=== PATIENT | male | born 1960 | race African-American/Black ===

== ENCOUNTER 2017-09-18 14:15 | Inpatient (IN) | payer OTHER ==
[2017-09-18 14:44] VITALS: BMI 35.3
--- NOTE | 2017-09-18 18:23 | HP ---
Admission [facility] Chief Complaint: Here for rehab. Allergies/Adverse Reactions: Allergies Allergy/AdvReac Type Severity Reaction Status Date / Time Fish Containing Products Allergy Severe Swelling Verified 09/18/17 17:32 History of Present Illness: Discharged from [facility] on 09/14. Has had some sporadic use of heroin, alcohol and cocaine since discharge. Last use was 09/18 @ 2 am. Significantly less than before detox. Denies withdrawal symptoms. MTD and BZO in urine toxicology are from being detoxed. Smokes cigarettes 1/2 PPD. Hx. asthma w/ recent exacerbation. Hx. DM and HTN. Not on a diabetic or low sodium diet. Exam Limitations: No Limitations - Ebola screening Have you traveled outside of the country in the last 21 days: No (N) Have you had contact with anyone from an Ebola affected area: No Have you been sick,other than usual withdrawal symptoms: No Do you have a fever: No - Review of Systems Constitutional: No Symptoms Reported EENT: reports: Blurred Vision (Needs to use glasses.), Other (Chronic bulging eyes. Denies thyroid disorder.) Respiratory: reports: Other (Hx asthma. Last attack years ago. Trggered by cold weather.) Cardiac: reports: Other (Hx. HTN on medication) GI: reports: Other (Umbilical hernia.) : reports: Frequency (Frequency 3 x/hour w/ alot of urine output. No blood, burning or pain w/ urination.) Musculoskeletal: reports: Joint Pain ((R) knee pain. Torn cartiledge. pain is sharp and "7". Pain increases w/ weight bearing. Nothing relieves pain.), Other ((L) knee replacement.) Integumentary: reports: No Symptoms Reported Neuro: reports: Headache (Mild h/a.) Endocrine: reports: Other (Has DM. On metformin. Unknown A1C or Bld glucose.) Hematology: reports: No Symptoms Reported Psychiatric: reports: Orientated x3, Depressed (Unpleased with self. Denies suicide or violent ideation.) Patient History - Patient Medical History Hx Asthma: Yes (No recent exacerbation.) Hx Chronic Obstructive Pulmonary Disease (COPD): No Hx Cancer: No Hx Cardiac Disorders: No Hx Congestive Heart Failure: No Hx Hypertension: Yes (On meds) Hx Hypercholesterolemia: No Hx Pacemaker: No HX Cerebrovascular Accident: No Hx Seizures: No Hx Dementia: No Hx Diabetes: Yes (On metformin) Hx Gastrointestinal Disorders: No Hx Liver Disease: No Hx Genitourinary Disorders: No Hx Sexually Transmitted Disorders: No Hx Renal Disease (ESRD): No Hx Thyroid Disease: No Hx Human Immunodeficiency Virus (HIV): No Hx Hepatitis C: No Hx Depression: Yes (Feels a little down now. ) Hx Suicide Attempt: No Hx Bipolar Disorder: No Hx Schizophrenia: No - Patient Surgical History Past Surgical History: Yes Hx Neurologic Surgery: No Hx Cataract Extraction: No Hx Cardiac Surgery: No Hx Lung Surgery: No Hx Breast Surgery: No Hx Breast Biopsy: No Hx Abdominal Surgery: No Hx Appendectomy: No Hx Cholecystectomy: No Hx Genitourinary Surgery: No Hx Orthopedic Surgery: Yes ((L) TKR June 2014) Anesthesia Reaction: No - PPD History Previous Implant?: Yes (States (+) years ago, but recent was (-)) Implanted On Prior R Admission?: No PPD to be Administered?: Yes - Smoking Cessation Smoking history: Current every day smoker Have you smoked in the past 12 months: Yes Aproximately how many cigarettes per day: 10 Hx Chewing Tobacco Use: No Initiated information on smoking cessation: Yes 'Breaking Loose' booklet given: 09/18/17 - Substance & Tx. History Hx Alcohol Use: Yes Hx Substance Use: Yes Substance Use Type: Cocaine, Heroin Hx Substance Use Treatment: Yes (Detox at [facility]- discharged 09/14/17) - Substances Abused Heroin Route: Sniff Frequency: 3-6 times per week Amount used: 1 bag Age of first use: 19 Date of Last Use: 09/18/17 (2 am. Using les than before detox) Cocaine Route: Sniff and Smoke Frequency: 3-6 times per week Amount used: 2 grms Age of first use: 17 Date of Last Use: 09/18/17 (2 am. (Much less than before detox)) Alcohol Route: Oral Frequency: 3-6 times per week Amount used: 6-12 12 oz beers and pint vodka Age of first use: 13 Date of Last Use: 09/18/17 (2 am. (Much less than before detox)) Family Disease History - Family Disease History Family Disease History: Diabetes: Mother (DM and asthma), Heart Disease: Father (), Mother, Respiratory: Mother, Sister (COPD) Admission Physical Exam S - Vital Signs Vital Signs: Vital Signs - 24 hr 09/18/17 14:39 Temperature 98.1 F Pulse Rate 91 H Respiratory 14 Rate Blood Pressure 150/84 - Physical General Appearance: Yes: No Apparent Distress HEENTM: Yes: EOMI, Hearing grossly Normal, Normal Voice, DUNG (pupils at 3 mm.) , Other (Eyes bulging.) Respiratory: Yes: Chest Non-Tender, Lungs Clear, Normal Breath Sounds Neck: Yes: No masses,lesions,Nodules, Supple Breast: Yes: Breast Exam Deferred Cardiology: Yes: Regular Rhythm, Regular Rate, S1, S2 Abdominal: Yes: Normal Bowel Sounds, Non Tender, Soft, Protuberent, Hernia ( Umbilical hernia. Reducible.) Genitourinary: Yes: Within Normal Limits, Frequency Back: Yes: Normal Inspection Musculoskeletal: Yes: Gait Steady, Joint Stiffness (Decreased ROM (L) knee. (+) crepitus (R) knee.) Extremities: Yes: Normal Capillary Refill, Non-Tender Neurological: Yes: motor checker II-XII NML intact, Fully Oriented, Motor Strength 5/5, Normal Mood/Affect Integumentary: Yes: Within Normal Limits Lymphatic: Yes: Within Normal Limits - Diagnostic (1) Opiate dependence Current Visit: No Status: Chronic Qualifiers: Substance use status: in remission Qualified Code(s): F11.21 - Opioid dependence, in remission (2) Alcohol dependence Current Visit: Yes Status: Acute (3) Cocaine dependence Current Visit: Yes Status: Chronic Qualifiers: Substance use status: in remission Qualified Code(s): F14.21 - Cocaine dependence, in remission (4) Hypertension Current Visit: Yes Status: Chronic Qualifiers: Hypertension type: unspecified Qualified Code(s): I10 - Essential (primary ) hypertension (5) Diabetes mellitus Current Visit: Yes Status: Acute Qualifiers: Diabetes mellitus type: type 2 Diabetes mellitus residential insulin use: without instructor private use Diabetes mellitus complication status: without complication Qualified Code(s): E11.9 - Type 2 diabetes mellitus without complications (6) History of knee replacement procedure of left knee Current Visit: No Status: Chronic (7) Knee pain, right Current Visit: Yes Status: Chronic Qualifiers: Chronicity: chronic Qualified Code(s): M25.561 - Pain in right knee; G89.29 - Other chronic pain (8) Frequency of urination Current Visit: Yes Status: Chronic (9) Nicotine dependence unspecified, with withdrawal Current Visit: Yes Status: Acute Qualifiers: Nicotine product type: cigarettes Qualified Code(s): F17.213 - Nicotine dependence, cigarettes, with withdrawal Cleared for Admission [facility] - Detox or Rehab [facility] Level of Care: Medically Managed Claeared for Rehab Admission: Yes [facility] Breath Alcohol Content Breath Alcohol Content: 0 Urine Drug Screen - Results Drug Screen Negative: No Urine Drug Screen Results: NOREEN-Cocaine, BZO-Benzodiazepines, MTD-Methadone Inpatient Rehab Admission - Initial Determination Are CD services needed?: Yes Free of communicable disease: Yes Not in need of hospitalization: Yes - Rehab Admission Criteria Previous failed treatment: Yes Poor recovery environment: Yes Comorbidities: Yes Lacks judgement: No Patient is meeting Inpatient Rehab admission criteria:: Yes
[2017-09-18] MEDS ORDERED: ACETAMINOPHEN 325 MG TABLET (FP) PO PRN (19:21)
[2017-09-18] MEDS ORDERED: guaiFENesin/D-METHORPHAN HB 10 ML UNIT-DOSE CUPS PO PRN (19:21)
[2017-09-18] MEDS ORDERED: LOPERAMIDE HCL 2 MG CAPSULE PO PRN (19:21)
[2017-09-18] MEDS ORDERED: MAG HYDROX/AL HYDROX/SIMETH 30 ML UNIT-DOSE CUP PO PRN (19:21)
[2017-09-18] MEDS ORDERED: MAGNESIUM CITRATE 300 ML BOTTLE PO PRN (19:21)
[2017-09-18] MEDS ORDERED: MAGNESIUM HYDROX 2400MG/30ML ORAL SUSPENSION 30 ML CUP PO PRN (19:21)
[2017-09-18] MEDS ORDERED: NICOTINE POLACRILEX 2 MG GUM BC PRN (19:21)
[2017-09-18] MEDS ORDERED: hydrOXYzine PAMOATE 50 MG CAPSULE (FP) PO PRN (19:21)
[2017-09-18] MEDS ORDERED: P-EPHED 60MG/TRIPROLIDI 2.5MG TABLET PO PRN (19:21)
[2017-09-18] MEDS ORDERED: TUBERCULIN PPD 5 TU/0.1ML VIAL ID ONE (20:09)
[2017-09-18] MEDS: metFORMIN HCL 500 MG TABLET (FP) PO SCH (21:50)
[2017-09-18] MEDS: THIAMINE HCL 100 MG TABLET (FP) PO SCH (21:51)
[2017-09-18] MEDS: IBUPROFEN 600 MG TABLET (FP) PO SCH (21:51)
[2017-09-18] MEDS ORDERED: MELATONIN 5 MG TABLETS PO PRN (22:00)
[2017-09-19] MEDS: IBUPROFEN 600 MG TABLET (FP) PO SCH ×3 (06:45→21:23)
[2017-09-19] MEDS: amLODIPine BESYLATE 10 MG TABLET (FP) PO SCH (10:15)
[2017-09-19] MEDS: metFORMIN HCL 500 MG TABLET (FP) PO SCH ×2 (10:15→16:53)
[2017-09-19] MEDS: PRENATAL VITAMINS W/ FOLIC ACID TABLET (FP) PO SCH (10:15)
[2017-09-19] MEDS: LISINOPRIL 10 MG TABLET (FP) PO SCH (10:15)
[2017-09-19] MEDS: NICOTINE 21 MG/24 HOURS TOPICAL PATCH TD SCH (10:16)
[2017-09-19 10:45] LABS: HEMATOCRIT 42.3 % (35.4-49); HEMOGLOBIN 13.9 GM/dL (11.7-16.9); MCH 27.7 pg (25.7-33.7); MCHC 32.7 g/dl (32.0-35.9); MEAN CELL VOLUME 84.5 fl (80-96); MEAN PLT VOLUME 9.2 fl (7.5-11.1); PLATELET COUNT 149 K/MM3 (134-434); RBC 5.01 M/mm3 (4.00-5.60); RDW 14.8 % (11.9-15.9); WHITE BLOOD COUNT 5.1 K/mm3 (4.0-10.0)
[2017-09-19 11:00] LABS: ALBUMIN 3.2 g/dl (3.4-5.0); ANION GAP 6 (8-16); BLOOD UREA NITROGEN 15 mg/dL (7-18); CALCIUM 8.6 mg/dL (8.5-10.1); CHLORIDE 109 mmol/L (98-107); CO2 27 mmol/L (21-32); CREATININE 0.9 mg/dL (0.7-1.3); GLUCOSE,RANDOM 124 mg/dL (74-106); POTASSIUM 4.1 mmol/L (3.5-5.1); SGOT/AST 12 U/L (15-37); SGPT/ALT 25 U/L (12-78); SODIUM 142 mmol/L (136-145)
[2017-09-19 11:02] LABS: ALK PHOS 85 U/L (45-117); BILIRUBIN,TOTAL 0.2 mg/dL (0.2-1.0); TOT PROT 6.3 g/dl (6.4-8.2)
--- NOTE | 2017-09-19 14:49 | EKG ---
Test Reason : Blood Pressure : / mmHG Vent. Rate : 076 BPM Atrial Rate : 076 BPM P-R Int : 144 ms QRS Dur : 104 ms QT Int : 378 ms P-R-T Axes : 046 017 016 degrees QTc Int : 425 ms NORMAL SINUS RHYTHM NORMAL ECG NO PREVIOUS ECGS AVAILABLE Confirmed by MD Moscoso Daniel ([id number]) on 09/19/2017 2:49:12 PM Referred By: Confirmed By:Oliverio Moscoso MD
[2017-09-19 16:02] LABS: URINE APPEARANCE CLEAR; URINE BILIRUBIN NEGATIVE (<2.0 mg/dL); URINE COLOR LTYELLOW; URINE GLUCOSE (UA) NEGATIVE (NEGATIVE); URINE KETONE NEGATIVE (NEGATIVE); URINE LEUK ESTERASE NEGATIVE (NEGATIVE); URINE NITRITE NEGATIVE (NEGATIVE); URINE PROTEIN NEGATIVE (NEGATIVE); URINE UROBILINOGEN NEGATIVE mg/dL (0.2-1.0)
[2017-09-19] MEDS: THIAMINE HCL 100 MG TABLET (FP) PO SCH (21:23)
[2017-09-20] MEDS: metFORMIN HCL 500 MG TABLET (FP) PO SCH ×2 (06:45→16:44)
[2017-09-20] MEDS: IBUPROFEN 600 MG TABLET (FP) PO SCH ×3 (06:45→21:20)
[2017-09-20] MEDS: PRENATAL VITAMINS W/ FOLIC ACID TABLET (FP) PO SCH (10:08)
[2017-09-20] MEDS: NICOTINE 21 MG/24 HOURS TOPICAL PATCH TD SCH (10:08)
[2017-09-20] MEDS: LISINOPRIL 10 MG TABLET (FP) PO SCH (10:08)
[2017-09-20] MEDS: amLODIPine BESYLATE 10 MG TABLET (FP) PO SCH (10:08)
--- NOTE | 2017-09-20 18:09 | PN ---
[facility] Progress Note Note: positive ppd 20 mm ,will get chest ray in am
[2017-09-20] MEDS: THIAMINE HCL 100 MG TABLET (FP) PO SCH (21:20)
[2017-09-21] MEDS: metFORMIN HCL 500 MG TABLET (FP) PO SCH ×2 (06:12→16:51)
[2017-09-21] MEDS ORDERED: cloNIDine HCL 0.1 MG TABLET PO ONE (07:15)
[2017-09-21] MEDS: IBUPROFEN 600 MG TABLET (FP) PO SCH ×3 (07:52→21:32)
--- NOTE | 2017-09-21 09:23 | HP ---
Psychiatrist Admission - Data Date of interview: 09/21/17 Admission source: [facility] Identifying data: Patient is a 57 year old single male, father of one, unemployed, homeless, and supported by public assistance. This is patient's first admission to rehab at [place]. Pt. admitted for alcohol, cocaine, and heroin dependence. Medical History: h/o asthma, left knee replacement Psychiatric History: Patient denies h/o psychiatric hospitalization, outpatient treatment, and suicide attempt. Physical/Sexual Abuse/Trauma History: Denies. Additional Comment: Urine Drug Screen Results: NOREEN-Cocaine, BZO-Benzodiazepines , MTD-Methadone Vital Signs: Vital Signs - 24 hr 09/21/17 09/21/17 09/21/17 00:30 03:30 07:14 Temperature 97.9 F Pulse Rate 80 Respiratory 18 18 18 Rate Blood Pressure 152/112 09/21/17 07:32 Temperature Pulse Rate 83 Respiratory Rate Blood Pressure 128/91 Allergies/Adverse Reactions: Allergies Allergy/AdvReac Type Severity Reaction Status Date / Time Fish Containing Products Allergy Severe Swelling Verified 09/18/17 17:32 Date of last physical exam: 09/18/17 Concur with the findings of this exam: Yes - Substance Abuse/Tx History Hx Alcohol Use: Yes (2 pints daily) Hx Substance Use: Yes (Cocaine- "varies" Heroin- 5 bags daily) Substance Use Type: Cocaine, Heroin Hx Substance Use Treatment: Yes ([facility] from 2013- 2015) Mental Status Exam - Mental Status Exam Alert and Oriented to: Time, Place, Person Cognitive Function: Good Patient Appearance: Well Groomed Mood: Euthymic Affect: Mood Congruent Patient Behavior: Fatigued, Appropriate Speech Pattern: Appropriate Voice Loudness: Mildly Soft/Quiet Thought Process: Goal Oriented Thought Disorder: Not Present Hallucinations: Denies Suicidal Ideation: Denies Homicidal Ideation: Denies Insight/Judgement: Poor Sleep: Fair Appetite: Good Muscle strength/Tone: Normal Gait/Station: Normal Psychiatric Findings - Problem List ([place] 1, 2,3) (1) Alcohol dependence Current Visit: Yes Status: Acute (2) Cocaine dependence Current Visit: Yes Status: Chronic Qualifiers: Substance use status: in remission Qualified Code(s): F14.21 - Cocaine dependence, in remission (3) Opiate dependence Current Visit: Yes Status: Chronic Qualifiers: Substance use status: in remission Qualified Code(s): F11.21 - Opioid dependence, in remission - Initial Treatment Plan Initial Treatment Plan: Psychoeducation provided. Rehabilition in progress. [facility].
[2017-09-21] MEDS: PRENATAL VITAMINS W/ FOLIC ACID TABLET (FP) PO SCH (10:11)
[2017-09-21] MEDS: NICOTINE 21 MG/24 HOURS TOPICAL PATCH TD SCH (10:11)
[2017-09-21] MEDS: amLODIPine BESYLATE 10 MG TABLET (FP) PO SCH (10:11)
[2017-09-21] MEDS: LISINOPRIL 10 MG TABLET (FP) PO SCH (10:11)
[2017-09-21] MEDS: MENTHOL/PHENOL 1 EACH UD MM PRN (21:33)
[2017-09-21] MEDS: THIAMINE HCL 100 MG TABLET (FP) PO SCH (21:33)
[2017-09-22] MEDS: IBUPROFEN 600 MG TABLET (FP) PO SCH ×3 (06:20→21:17)
[2017-09-22] MEDS: metFORMIN HCL 500 MG TABLET (FP) PO SCH ×2 (06:20→16:50)
[2017-09-22] MEDS: LISINOPRIL 10 MG TABLET (FP) PO SCH (10:16)
[2017-09-22] MEDS: PRENATAL VITAMINS W/ FOLIC ACID TABLET (FP) PO SCH (10:16)
[2017-09-22] MEDS: amLODIPine BESYLATE 10 MG TABLET (FP) PO SCH (10:16)
[2017-09-22] MEDS: NICOTINE 21 MG/24 HOURS TOPICAL PATCH TD SCH (10:16)
[2017-09-22] MEDS: THIAMINE HCL 100 MG TABLET (FP) PO SCH (21:17)
[2017-09-23] MEDS: IBUPROFEN 600 MG TABLET (FP) PO SCH ×3 (06:01→21:09)
[2017-09-23] MEDS: metFORMIN HCL 500 MG TABLET (FP) PO SCH ×2 (06:01→16:41)
[2017-09-23] MEDS: LISINOPRIL 10 MG TABLET (FP) PO SCH (10:08)
[2017-09-23] MEDS: amLODIPine BESYLATE 10 MG TABLET (FP) PO SCH (10:08)
[2017-09-23] MEDS: PRENATAL VITAMINS W/ FOLIC ACID TABLET (FP) PO SCH (10:08)
[2017-09-23] MEDS: NICOTINE 21 MG/24 HOURS TOPICAL PATCH TD SCH (10:09)
[2017-09-23] MEDS: THIAMINE HCL 100 MG TABLET (FP) PO SCH (21:09)
[2017-09-24] MEDS: metFORMIN HCL 500 MG TABLET (FP) PO SCH ×2 (09:36→17:05)
[2017-09-24] MEDS: IBUPROFEN 600 MG TABLET (FP) PO SCH ×3 (09:36→21:13)
[2017-09-24] MEDS: amLODIPine BESYLATE 10 MG TABLET (FP) PO SCH (09:50)
[2017-09-24] MEDS: PRENATAL VITAMINS W/ FOLIC ACID TABLET (FP) PO SCH (09:51)
[2017-09-24] MEDS: LISINOPRIL 10 MG TABLET (FP) PO SCH (09:51)
[2017-09-24] MEDS: NICOTINE 21 MG/24 HOURS TOPICAL PATCH TD SCH (09:51)
[2017-09-24] MEDS: THIAMINE HCL 100 MG TABLET (FP) PO SCH (21:13)
[2017-09-25] MEDS: IBUPROFEN 600 MG TABLET (FP) PO SCH ×3 (07:11→21:13)
[2017-09-25] MEDS: metFORMIN HCL 500 MG TABLET (FP) PO SCH ×2 (07:12→17:19)
[2017-09-25] MEDS: amLODIPine BESYLATE 10 MG TABLET (FP) PO SCH (10:02)
[2017-09-25] MEDS: LISINOPRIL 10 MG TABLET (FP) PO SCH (10:02)
[2017-09-25] MEDS: PRENATAL VITAMINS W/ FOLIC ACID TABLET (FP) PO SCH (10:02)
[2017-09-25] MEDS: NICOTINE 21 MG/24 HOURS TOPICAL PATCH TD SCH (10:02)
[2017-09-25] MEDS: THIAMINE HCL 100 MG TABLET (FP) PO SCH (21:13)
[2017-09-26] MEDS: metFORMIN HCL 500 MG TABLET (FP) PO SCH ×2 (06:43→17:00)
[2017-09-26] MEDS: IBUPROFEN 600 MG TABLET (FP) PO SCH ×3 (06:43→21:25)
[2017-09-26] MEDS: amLODIPine BESYLATE 10 MG TABLET (FP) PO SCH (09:55)
[2017-09-26] MEDS: PRENATAL VITAMINS W/ FOLIC ACID TABLET (FP) PO SCH (09:55)
[2017-09-26] MEDS: NICOTINE 21 MG/24 HOURS TOPICAL PATCH TD SCH (09:55)
[2017-09-26] MEDS: LISINOPRIL 10 MG TABLET (FP) PO SCH (09:55)
[2017-09-26] MEDS: THIAMINE HCL 100 MG TABLET (FP) PO SCH (21:26)
[2017-09-27] MEDS: metFORMIN HCL 500 MG TABLET (FP) PO SCH ×2 (07:23→16:41)
[2017-09-27] MEDS: IBUPROFEN 600 MG TABLET (FP) PO SCH ×3 (07:24→21:17)
[2017-09-27] MEDS: LISINOPRIL 10 MG TABLET (FP) PO SCH (10:04)
[2017-09-27] MEDS: PRENATAL VITAMINS W/ FOLIC ACID TABLET (FP) PO SCH (10:04)
[2017-09-27] MEDS: NICOTINE 21 MG/24 HOURS TOPICAL PATCH TD SCH (10:04)
[2017-09-27] MEDS: amLODIPine BESYLATE 10 MG TABLET (FP) PO SCH (10:04)
[2017-09-27] MEDS: THIAMINE HCL 100 MG TABLET (FP) PO SCH (21:17)
[2017-09-28] MEDS: metFORMIN HCL 500 MG TABLET (FP) PO SCH ×2 (06:49→16:45)
[2017-09-28] MEDS: IBUPROFEN 600 MG TABLET (FP) PO SCH ×3 (06:50→21:17)
[2017-09-28] MEDS: amLODIPine BESYLATE 10 MG TABLET (FP) PO SCH (10:14)
[2017-09-28] MEDS: NICOTINE 21 MG/24 HOURS TOPICAL PATCH TD SCH (10:14)
[2017-09-28] MEDS: PRENATAL VITAMINS W/ FOLIC ACID TABLET (FP) PO SCH (10:14)
[2017-09-28] MEDS: LISINOPRIL 10 MG TABLET (FP) PO SCH (10:14)
[2017-09-28] MEDS: THIAMINE HCL 100 MG TABLET (FP) PO SCH (21:17)
[2017-09-29] MEDS: IBUPROFEN 600 MG TABLET (FP) PO SCH ×3 (06:11→21:18)
[2017-09-29] MEDS: metFORMIN HCL 500 MG TABLET (FP) PO SCH ×2 (06:12→17:02)
[2017-09-29] MEDS: LISINOPRIL 10 MG TABLET (FP) PO SCH (10:29)
[2017-09-29] MEDS: PRENATAL VITAMINS W/ FOLIC ACID TABLET (FP) PO SCH (10:29)
[2017-09-29] MEDS: NICOTINE 21 MG/24 HOURS TOPICAL PATCH TD SCH (10:29)
[2017-09-29] MEDS: amLODIPine BESYLATE 10 MG TABLET (FP) PO SCH (10:29)
[2017-09-29] MEDS: THIAMINE HCL 100 MG TABLET (FP) PO SCH (21:18)
[2017-09-29] MEDS: MENTHOL/PHENOL 1 EACH UD MM PRN (21:19)
[2017-09-30] MEDS: IBUPROFEN 600 MG TABLET (FP) PO SCH ×3 (06:15→21:13)
[2017-09-30] MEDS: metFORMIN HCL 500 MG TABLET (FP) PO SCH ×3 (07:34→16:53)
[2017-09-30] MEDS: amLODIPine BESYLATE 10 MG TABLET (FP) PO SCH (10:29)
[2017-09-30] MEDS: NICOTINE 21 MG/24 HOURS TOPICAL PATCH TD SCH (10:29)
[2017-09-30] MEDS: LISINOPRIL 10 MG TABLET (FP) PO SCH (10:29)
[2017-09-30] MEDS: PRENATAL VITAMINS W/ FOLIC ACID TABLET (FP) PO SCH (10:29)
--- NOTE | 2017-09-30 13:27 | PN ---
[facility] Progress Note Note: PATIENT C/O HEADACHE AND MILD DIZZINESS. HAS HX OF HTN AND TREATED WITH LISINOPRIL. DENIES CP AND SOB. Vital Signs Temperature 97.7 F 09/30/17 09:18 Pulse Rate 86 09/30/17 09:18 Respiratory Rate 20 09/30/17 09:18 Blood Pressure 147/103 09/30/17 09:18 O2 Sat by Pulse Oximetry (%) Laboratory Tests 09/18/17 09/19/17 09/19/17 20:53 07:55 07:55 WBC 5.1 RBC 5.01 Hgb 13.9 Hct 42.3 MCV 84.5 MCH 27.7 MCHC 32.7 RDW 14.8 Plt Count 149 MPV 9.2 Sodium 142 Potassium 4.1 Chloride 109 H Carbon Dioxide 27 Anion Gap 6 L BUN 15 Creatinine 0.9 Creat Clearance w eGFR > 60 POC Glucometer 152 Random Glucose 124 H Calcium 8.6 Total Bilirubin 0.2 AST 12 L ALT 25 Alkaline Phosphatase 85 Total Protein 6.3 L Albumin 3.2 L Urine Color Urine Appearance Urine pH Ur Specific [place] Urine Protein Urine Glucose (UA) Urine Ketones Urine Blood Urine Nitrite Urine Bilirubin Urine Urobilinogen Ur Leukocyte Esterase RPR Titer Hep C Ab Diagnostic Liver Fibrosis Interp HIV 1&2 Antibody Screen HIV P24 Antigen 09/19/17 09/19/17 09/19/17 07:55 07:55 07:55 WBC RBC Hgb Hct MCV MCH MCHC RDW Plt Count MPV Sodium Potassium Chloride Carbon Dioxide Anion Gap BUN Creatinine Creat Clearance w eGFR POC Glucometer Random Glucose Calcium Total Bilirubin AST ALT Alkaline Phosphatase Total Protein Albumin Urine Color Urine Appearance Urine pH Ur Specific [place] Urine Protein Urine Glucose (UA) Urine Ketones Urine Blood Urine Nitrite Urine Bilirubin Urine Urobilinogen Ur Leukocyte Esterase RPR Titer Nonreactive Hep C Ab Diagnostic 0.1 Liver Fibrosis Interp HIV 1&2 Antibody Screen Negative HIV P24 Antigen Negative 09/19/17 09/19/17 09/20/17 08:39 16:52 06:44 WBC RBC Hgb Hct MCV MCH MCHC RDW Plt Count MPV Sodium Potassium Chloride Carbon Dioxide Anion Gap BUN Creatinine Creat Clearance w eGFR POC Glucometer 209 132 Random Glucose Calcium Total Bilirubin AST ALT Alkaline Phosphatase Total Protein Albumin Urine Color Ltyellow Urine Appearance Clear Urine pH 6.0 Ur Specific [place] 1.016 Urine Protein Negative Urine Glucose (UA) Negative Urine Ketones Negative Urine Blood Negative Urine Nitrite Negative Urine Bilirubin Negative Urine Urobilinogen Negative Ur Leukocyte Esterase Negative RPR Titer Hep C Ab Diagnostic Liver Fibrosis Interp HIV 1&2 Antibody Screen HIV P24 Antigen 09/20/17 09/21/17 09/21/17 16:43 06:12 16:51 WBC RBC Hgb Hct MCV MCH MCHC RDW Plt Count MPV Sodium Potassium Chloride Carbon Dioxide Anion Gap BUN Creatinine Creat Clearance w eGFR POC Glucometer 251 129 231 Random Glucose Calcium Total Bilirubin AST ALT Alkaline Phosphatase Total Protein Albumin Urine Color Urine Appearance Urine pH Ur Specific [place] Urine Protein Urine Glucose (UA) Urine Ketones Urine Blood Urine Nitrite Urine Bilirubin Urine Urobilinogen Ur Leukocyte Esterase RPR Titer Hep C Ab Diagnostic Liver Fibrosis Interp HIV 1&2 Antibody Screen HIV P24 Antigen 09/22/17 09/22/17 09/23/17 06:19 16:50 06:00 WBC RBC Hgb Hct MCV MCH MCHC RDW Plt Count MPV Sodium Potassium Chloride Carbon Dioxide Anion Gap BUN Creatinine Creat Clearance w eGFR POC Glucometer 128 191 119 Random Glucose Calcium Total Bilirubin AST ALT Alkaline Phosphatase Total Protein Albumin Urine Color Urine Appearance Urine pH Ur Specific [place] Urine Protein Urine Glucose (UA) Urine Ketones Urine Blood Urine Nitrite Urine Bilirubin Urine Urobilinogen Ur Leukocyte Esterase RPR Titer Hep C Ab Diagnostic Liver Fibrosis Interp HIV 1&2 Antibody Screen HIV P24 Antigen 09/23/17 09/24/17 09/24/17 16:40 06:21 17:05 WBC RBC Hgb Hct MCV MCH MCHC RDW Plt Count MPV Sodium Potassium Chloride Carbon Dioxide Anion Gap BUN Creatinine Creat Clearance w eGFR POC Glucometer 228 133 135 Random Glucose Calcium Total Bilirubin AST ALT Alkaline Phosphatase Total Protein Albumin Urine Color Urine Appearance Urine pH Ur Specific [place] Urine Protein Urine Glucose (UA) Urine Ketones Urine Blood Urine Nitrite Urine Bilirubin Urine Urobilinogen Ur Leukocyte Esterase RPR Titer Hep C Ab Diagnostic Liver Fibrosis Interp HIV 1&2 Antibody Screen HIV P24 Antigen 09/25/17 09/25/17 09/26/17 07:11 17:18 06:43 WBC RBC Hgb Hct MCV MCH MCHC RDW Plt Count MPV Sodium Potassium Chloride Carbon Dioxide Anion Gap BUN Creatinine Creat Clearance w eGFR POC Glucometer 141 234 130 Random Glucose Calcium Total Bilirubin AST ALT Alkaline Phosphatase Total Protein Albumin Urine Color Urine Appearance Urine pH Ur Specific [place] Urine Protein Urine Glucose (UA) Urine Ketones Urine Blood Urine Nitrite Urine Bilirubin Urine Urobilinogen Ur Leukocyte Esterase RPR Titer Hep C Ab Diagnostic Liver Fibrosis Interp HIV 1&2 Antibody Screen HIV P24 Antigen 09/27/17 09/27/17 09/28/17 06:42 16:40 06:49 WBC RBC Hgb Hct MCV MCH MCHC RDW Plt Count MPV Sodium Potassium Chloride Carbon Dioxide Anion Gap BUN Creatinine Creat Clearance w eGFR POC Glucometer 140 181 134 Random Glucose Calcium Total Bilirubin AST ALT Alkaline Phosphatase Total Protein Albumin Urine Color Urine Appearance Urine pH Ur Specific [place] Urine Protein Urine Glucose (UA) Urine Ketones Urine Blood Urine Nitrite Urine Bilirubin Urine Urobilinogen Ur Leukocyte Esterase RPR Titer Hep C Ab Diagnostic Liver Fibrosis Interp HIV 1&2 Antibody Screen HIV P24 Antigen 09/28/17 09/29/17 09/29/17 16:45 06:10 17:01 WBC RBC Hgb Hct MCV MCH MCHC RDW Plt Count MPV Sodium Potassium Chloride Carbon Dioxide Anion Gap BUN Creatinine Creat Clearance w eGFR POC Glucometer 228 142 121 Random Glucose Calcium Total Bilirubin AST ALT Alkaline Phosphatase Total Protein Albumin Urine Color Urine Appearance Urine pH Ur Specific [place] Urine Protein Urine Glucose (UA) Urine Ketones Urine Blood Urine Nitrite Urine Bilirubin Urine Urobilinogen Ur Leukocyte Esterase RPR Titer Hep C Ab Diagnostic Liver Fibrosis Interp HIV 1&2 Antibody Screen HIV P24 Antigen 09/30/17 06:11 WBC RBC Hgb Hct MCV MCH MCHC RDW Plt Count MPV Sodium Potassium Chloride Carbon Dioxide Anion Gap BUN Creatinine Creat Clearance w eGFR POC Glucometer 144 Random Glucose Calcium Total Bilirubin AST ALT Alkaline Phosphatase Total Protein Albumin Urine Color Urine Appearance Urine pH Ur Specific [place] Urine Protein Urine Glucose (UA) Urine Ketones Urine Blood Urine Nitrite Urine Bilirubin Urine Urobilinogen Ur Leukocyte Esterase RPR Titer Hep C Ab Diagnostic Liver Fibrosis Interp HIV 1&2 Antibody Screen HIV P24 Antigen OBJ: GENERAL: ALERT AND ORIENTED X 3. IN NO ACUTE DISTRESS. SKIN: WARM AND DRY CAR: S1S2, RRR. NO MURMUR OR GALLOPS RESP: CTA BL, NO WHEEZES OR RALES A/P: HTN WILL ORDER STAT DOSE OF CLONIDINE 0.2MG X ONE INCREASE LISINOPRIL TO 20MG DAILY CONTINUE TO MONITOR CLINICALLY
[2017-09-30] MEDS ORDERED: cloNIDine HCL 0.1 MG TABLET PO ONE (13:45)
[2017-09-30] MEDS: THIAMINE HCL 100 MG TABLET (FP) PO SCH (21:13)
[2017-10-01] MEDS: IBUPROFEN 600 MG TABLET (FP) PO SCH ×3 (07:08→21:25)
[2017-10-01] MEDS: metFORMIN HCL 500 MG TABLET (FP) PO SCH ×2 (07:08→17:15)
[2017-10-01] MEDS: NICOTINE 21 MG/24 HOURS TOPICAL PATCH TD SCH (10:13)
[2017-10-01] MEDS: PRENATAL VITAMINS W/ FOLIC ACID TABLET (FP) PO SCH (10:13)
[2017-10-01] MEDS: LISINOPRIL 20 MG TABLET (FP) PO SCH (10:13)
[2017-10-01] MEDS: amLODIPine BESYLATE 10 MG TABLET (FP) PO SCH (10:13)
[2017-10-01] MEDS: THIAMINE HCL 100 MG TABLET (FP) PO SCH (21:25)
[2017-10-02] MEDS: metFORMIN HCL 500 MG TABLET (FP) PO SCH ×2 (06:12→16:53)
[2017-10-02] MEDS: IBUPROFEN 600 MG TABLET (FP) PO SCH ×3 (06:13→21:22)
[2017-10-02] MEDS: amLODIPine BESYLATE 10 MG TABLET (FP) PO SCH (10:05)
[2017-10-02] MEDS: PRENATAL VITAMINS W/ FOLIC ACID TABLET (FP) PO SCH (10:05)
[2017-10-02] MEDS: LISINOPRIL 20 MG TABLET (FP) PO SCH (10:05)
[2017-10-02] MEDS: NICOTINE 21 MG/24 HOURS TOPICAL PATCH TD SCH (10:06)
[2017-10-02] MEDS: THIAMINE HCL 100 MG TABLET (FP) PO SCH (21:22)
[2017-10-03] MEDS: IBUPROFEN 600 MG TABLET (FP) PO SCH ×3 (06:04→21:10)
[2017-10-03] MEDS: metFORMIN HCL 500 MG TABLET (FP) PO SCH ×2 (06:05→16:57)
[2017-10-03] MEDS: NICOTINE 21 MG/24 HOURS TOPICAL PATCH TD SCH (09:59)
[2017-10-03] MEDS: PRENATAL VITAMINS W/ FOLIC ACID TABLET (FP) PO SCH (09:59)
[2017-10-03] MEDS: LISINOPRIL 20 MG TABLET (FP) PO SCH (09:59)
[2017-10-03] MEDS: amLODIPine BESYLATE 10 MG TABLET (FP) PO SCH (10:00)
[2017-10-03] MEDS: THIAMINE HCL 100 MG TABLET (FP) PO SCH (21:10)
[2017-10-04] MEDS: IBUPROFEN 600 MG TABLET (FP) PO SCH ×2 (06:13→14:29)
[2017-10-04] MEDS: metFORMIN HCL 500 MG TABLET (FP) PO SCH ×2 (06:13→17:13)
[2017-10-04] MEDS: NICOTINE 21 MG/24 HOURS TOPICAL PATCH TD SCH (10:03)
[2017-10-04] MEDS: LISINOPRIL 20 MG TABLET (FP) PO SCH (10:04)
[2017-10-04] MEDS: amLODIPine BESYLATE 10 MG TABLET (FP) PO SCH (10:04)
[2017-10-04] MEDS: PRENATAL VITAMINS W/ FOLIC ACID TABLET (FP) PO SCH (10:04)
[2017-10-05] MEDS: THIAMINE HCL 100 MG TABLET (FP) PO SCH ×2 (00:22→21:14)
[2017-10-05] MEDS: IBUPROFEN 600 MG TABLET (FP) PO SCH ×4 (00:22→21:14)
[2017-10-05] MEDS: metFORMIN HCL 500 MG TABLET (FP) PO SCH ×2 (06:46→16:53)
[2017-10-05] MEDS: PRENATAL VITAMINS W/ FOLIC ACID TABLET (FP) PO SCH (09:54)
[2017-10-05] MEDS: amLODIPine BESYLATE 10 MG TABLET (FP) PO SCH (09:54)
[2017-10-05] MEDS: NICOTINE 21 MG/24 HOURS TOPICAL PATCH TD SCH (09:54)
[2017-10-05] MEDS: LISINOPRIL 20 MG TABLET (FP) PO SCH (09:54)
[2017-10-06] MEDS: metFORMIN HCL 500 MG TABLET (FP) PO SCH ×2 (06:31→17:03)
[2017-10-06] MEDS: IBUPROFEN 600 MG TABLET (FP) PO SCH ×3 (06:31→21:27)
[2017-10-06] MEDS: PRENATAL VITAMINS W/ FOLIC ACID TABLET (FP) PO SCH (09:50)
[2017-10-06] MEDS: amLODIPine BESYLATE 10 MG TABLET (FP) PO SCH (09:50)
[2017-10-06] MEDS: LISINOPRIL 20 MG TABLET (FP) PO SCH (09:50)
[2017-10-06] MEDS: NICOTINE 21 MG/24 HOURS TOPICAL PATCH TD SCH (09:50)
--- NOTE | 2017-10-06 12:25 | PN ---
[facility] Progress Note Note: Vital Signs Temperature 97.8 F 10/06/17 06:34 Pulse Rate 86 10/06/17 06:34 Respiratory Rate 18 10/06/17 06:34 Blood Pressure 127/87 10/06/17 06:34 O2 Sat by Pulse Oximetry (%) Laboratory Last Values WBC 5.1 K/mm3 (4.0-10.0) 09/19/17 07:55 RBC 5.01 M/mm3 (4.00-5.60) 09/19/17 07:55 Hgb 13.9 GM/dL (11.7-16.9) 09/19/17 07:55 Hct 42.3 % (35.4-49) 09/19/17 07:55 MCV 84.5 fl (80-96) 09/19/17 07:55 MCH 27.7 pg (25.7-33.7) 09/19/17 07:55 MCHC 32.7 g/dl (32.0-35.9) 09/19/17 07:55 RDW 14.8 % (11.9-15.9) 09/19/17 07:55 Plt Count 149 K/MM3 (134-434) 09/19/17 07:55 MPV 9.2 fl (7.5-11.1) 09/19/17 07:55 Sodium 142 mmol/L (136-145) 09/19/17 07:55 Potassium 4.1 mmol/L (3.5-5.1) 09/19/17 07:55 Chloride 109 mmol/L (98-107) H 09/19/17 07:55 Carbon Dioxide 27 mmol/L (21-32) 09/19/17 07:55 Anion Gap 6 (8-16) L 09/19/17 07:55 BUN 15 mg/dL (7-18) 09/19/17 07:55 Creatinine 0.9 mg/dL (0.7-1.3) 09/19/17 07:55 Creat Clearance w eGFR > 60 (>60) 09/19/17 07:55 POC Glucometer 171 UNITS (80-120) 10/06/17 06:30 Random Glucose 124 mg/dL (74-106) H 09/19/17 07:55 Calcium 8.6 mg/dL (8.5-10.1) 09/19/17 07:55 Total Bilirubin 0.2 mg/dL (0.2-1.0) 09/19/17 07:55 AST 12 U/L (15-37) L 09/19/17 07:55 ALT 25 U/L (12-78) 09/19/17 07:55 Alkaline Phosphatase 85 U/L (45-117) 09/19/17 07:55 Total Protein 6.3 g/dl (6.4-8.2) L 09/19/17 07:55 Albumin 3.2 g/dl (3.4-5.0) L 09/19/17 07:55 Urine Color Ltyellow 09/19/17 08:39 Urine Appearance Clear 09/19/17 08:39 Urine pH 6.0 (5.0-8.0) 09/19/17 08:39 Ur Specific [place] 1.016 (1.001-1.035) 09/19/17 08:39 Urine Protein Negative (NEGATIVE) 09/19/17 08:39 Urine Glucose (UA) Negative (NEGATIVE) 09/19/17 08:39 Urine Ketones Negative (NEGATIVE) 09/19/17 08:39 Urine Blood Negative (NEGATIVE) 09/19/17 08:39 Urine Nitrite Negative (NEGATIVE) 09/19/17 08:39 Urine Bilirubin Negative (<2.0 mg/dL) 09/19/17 08:39 Urine Urobilinogen Negative mg/dL (0.2-1.0) 09/19/17 08:39 Ur Leukocyte Esterase Negative (NEGATIVE) 09/19/17 08:39 RPR Titer Nonreactive (NONREACTIVE) 09/19/17 07:55 Hep C Ab Diagnostic 0.1 s/co ratio (0.0-0.9) 09/19/17 07:55 Liver Fibrosis Interp (.) 09/19/17 07:55 HIV 1&2 Antibody Screen Negative 09/19/17 07:55 HIV P24 Antigen Negative 09/19/17 07:55 Patient on metformin BID, BGM slightly elevated. Start NCS diet. Increase fluids. Continue to monitor.
[2017-10-06] MEDS: THIAMINE HCL 100 MG TABLET (FP) PO SCH (21:28)
[2017-10-07] MEDS: metFORMIN HCL 500 MG TABLET (FP) PO SCH ×2 (06:16→16:35)
[2017-10-07] MEDS: IBUPROFEN 600 MG TABLET (FP) PO SCH ×3 (06:16→21:12)
[2017-10-07] MEDS: NICOTINE 21 MG/24 HOURS TOPICAL PATCH TD SCH (10:05)
[2017-10-07] MEDS: PRENATAL VITAMINS W/ FOLIC ACID TABLET (FP) PO SCH (10:05)
[2017-10-07] MEDS: LISINOPRIL 20 MG TABLET (FP) PO SCH (10:05)
[2017-10-07] MEDS: amLODIPine BESYLATE 10 MG TABLET (FP) PO SCH (10:05)
[2017-10-07] MEDS: THIAMINE HCL 100 MG TABLET (FP) PO SCH (21:12)
[2017-10-08] MEDS: metFORMIN HCL 500 MG TABLET (FP) PO SCH ×2 (06:52→16:41)
[2017-10-08] MEDS: IBUPROFEN 600 MG TABLET (FP) PO SCH ×3 (06:52→21:14)
[2017-10-08] MEDS: amLODIPine BESYLATE 10 MG TABLET (FP) PO SCH (10:10)
[2017-10-08] MEDS: LISINOPRIL 20 MG TABLET (FP) PO SCH (10:10)
[2017-10-08] MEDS: PRENATAL VITAMINS W/ FOLIC ACID TABLET (FP) PO SCH (10:10)
[2017-10-08] MEDS: NICOTINE 21 MG/24 HOURS TOPICAL PATCH TD SCH (10:10)
[2017-10-08] MEDS: THIAMINE HCL 100 MG TABLET (FP) PO SCH (21:15)
[2017-10-09] MEDS: metFORMIN HCL 500 MG TABLET (FP) PO SCH ×2 (06:20→16:55)
[2017-10-09] MEDS: IBUPROFEN 600 MG TABLET (FP) PO SCH ×3 (06:20→21:32)
[2017-10-09] MEDS: LISINOPRIL 20 MG TABLET (FP) PO SCH (09:59)
[2017-10-09] MEDS: PRENATAL VITAMINS W/ FOLIC ACID TABLET (FP) PO SCH (09:59)
[2017-10-09] MEDS: amLODIPine BESYLATE 10 MG TABLET (FP) PO SCH (09:59)
[2017-10-09] MEDS: NICOTINE 21 MG/24 HOURS TOPICAL PATCH TD SCH (09:59)
[2017-10-09] MEDS: THIAMINE HCL 100 MG TABLET (FP) PO SCH (21:32)
[2017-10-10] MEDS: IBUPROFEN 600 MG TABLET (FP) PO SCH ×3 (05:16→21:38)
[2017-10-10] MEDS: metFORMIN HCL 500 MG TABLET (FP) PO SCH ×2 (06:11→16:43)
[2017-10-10] MEDS: NICOTINE 21 MG/24 HOURS TOPICAL PATCH TD SCH (10:29)
[2017-10-10] MEDS: PRENATAL VITAMINS W/ FOLIC ACID TABLET (FP) PO SCH (10:29)
[2017-10-10] MEDS: LISINOPRIL 20 MG TABLET (FP) PO SCH (10:29)
[2017-10-10] MEDS: amLODIPine BESYLATE 10 MG TABLET (FP) PO SCH (10:29)
[2017-10-10] MEDS: THIAMINE HCL 100 MG TABLET (FP) PO SCH (21:38)
[2017-10-11] MEDS: metFORMIN HCL 500 MG TABLET (FP) PO SCH ×2 (06:41→17:06)
[2017-10-11] MEDS: IBUPROFEN 600 MG TABLET (FP) PO SCH ×3 (07:58→21:22)
[2017-10-11] MEDS: PRENATAL VITAMINS W/ FOLIC ACID TABLET (FP) PO SCH (10:38)
[2017-10-11] MEDS: amLODIPine BESYLATE 10 MG TABLET (FP) PO SCH (10:38)
[2017-10-11] MEDS: LISINOPRIL 20 MG TABLET (FP) PO SCH (10:38)
[2017-10-11] MEDS: NICOTINE 21 MG/24 HOURS TOPICAL PATCH TD SCH (10:38)
[2017-10-11] MEDS: THIAMINE HCL 100 MG TABLET (FP) PO SCH (21:23)
[2017-10-12] MEDS: IBUPROFEN 600 MG TABLET (FP) PO SCH ×3 (06:17→21:24)
[2017-10-12] MEDS: metFORMIN HCL 500 MG TABLET (FP) PO SCH ×2 (06:17→16:35)
[2017-10-12] MEDS: amLODIPine BESYLATE 10 MG TABLET (FP) PO SCH (11:08)
[2017-10-12] MEDS: NICOTINE 21 MG/24 HOURS TOPICAL PATCH TD SCH (11:08)
[2017-10-12] MEDS: PRENATAL VITAMINS W/ FOLIC ACID TABLET (FP) PO SCH (11:08)
[2017-10-12] MEDS: LISINOPRIL 20 MG TABLET (FP) PO SCH (11:08)
[2017-10-12] MEDS: THIAMINE HCL 100 MG TABLET (FP) PO SCH (21:24)
[2017-10-13] MEDS: IBUPROFEN 600 MG TABLET (FP) PO SCH ×3 (06:00→21:46)
[2017-10-13] MEDS: metFORMIN HCL 500 MG TABLET (FP) PO SCH ×2 (06:01→16:55)
[2017-10-13] MEDS: NICOTINE 21 MG/24 HOURS TOPICAL PATCH TD SCH (10:49)
[2017-10-13] MEDS: PRENATAL VITAMINS W/ FOLIC ACID TABLET (FP) PO SCH (10:49)
[2017-10-13] MEDS: amLODIPine BESYLATE 10 MG TABLET (FP) PO SCH (10:49)
[2017-10-13] MEDS: LISINOPRIL 20 MG TABLET (FP) PO SCH (10:49)
[2017-10-13] MEDS: THIAMINE HCL 100 MG TABLET (FP) PO SCH (21:46)
[2017-10-14] MEDS: IBUPROFEN 600 MG TABLET (FP) PO SCH ×3 (06:03→21:24)
[2017-10-14] MEDS: metFORMIN HCL 500 MG TABLET (FP) PO SCH ×2 (06:04→16:42)
[2017-10-14] MEDS: PRENATAL VITAMINS W/ FOLIC ACID TABLET (FP) PO SCH (10:06)
[2017-10-14] MEDS: LISINOPRIL 20 MG TABLET (FP) PO SCH (10:06)
[2017-10-14] MEDS: amLODIPine BESYLATE 10 MG TABLET (FP) PO SCH (10:06)
[2017-10-14] MEDS: NICOTINE 21 MG/24 HOURS TOPICAL PATCH TD SCH (10:06)
[2017-10-14] MEDS: THIAMINE HCL 100 MG TABLET (FP) PO SCH (21:24)
[2017-10-15] MEDS: IBUPROFEN 600 MG TABLET (FP) PO SCH ×3 (06:17→21:29)
[2017-10-15] MEDS: metFORMIN HCL 500 MG TABLET (FP) PO SCH ×2 (06:17→16:34)
[2017-10-15] MEDS: NICOTINE 21 MG/24 HOURS TOPICAL PATCH TD SCH (10:12)
[2017-10-15] MEDS: amLODIPine BESYLATE 10 MG TABLET (FP) PO SCH (10:12)
[2017-10-15] MEDS: LISINOPRIL 20 MG TABLET (FP) PO SCH (10:12)
[2017-10-15] MEDS: PRENATAL VITAMINS W/ FOLIC ACID TABLET (FP) PO SCH (10:12)
[2017-10-15] MEDS: THIAMINE HCL 100 MG TABLET (FP) PO SCH (21:29)
[2017-10-16] MEDS: IBUPROFEN 600 MG TABLET (FP) PO SCH ×3 (06:06→21:33)
[2017-10-16] MEDS: metFORMIN HCL 500 MG TABLET (FP) PO SCH ×2 (06:06→17:35)
[2017-10-16] MEDS ORDERED: amLODIPine BESYLATE 10 MG TABLET (FP) PO ONE (07:50)
[2017-10-16] MEDS ORDERED: LISINOPRIL 20 MG TABLET (FP) PO ONE (07:54)
[2017-10-16] MEDS: PRENATAL VITAMINS W/ FOLIC ACID TABLET (FP) PO SCH (10:16)
[2017-10-16] MEDS: NICOTINE 21 MG/24 HOURS TOPICAL PATCH TD SCH (10:16)
[2017-10-16] MEDS ORDERED: cloNIDine HCL 0.1 MG TABLET PO ONE (14:40)
--- NOTE | 2017-10-16 14:45 | PN ---
[facility] Progress Note Note: Patient c/o headache x 2 days. Denies CP, SOB and Dizziness. Vital Signs Temperature 98.0 F 10/16/17 07:09 Pulse Rate 85 10/16/17 10:00 Respiratory Rate 18 10/16/17 10:00 Blood Pressure 142/102 10/16/17 10:00 O2 Sat by Pulse Oximetry (%) Laboratory Tests 09/18/17 09/19/17 09/19/17 20:53 07:55 07:55 WBC 5.1 RBC 5.01 Hgb 13.9 Hct 42.3 MCV 84.5 MCH 27.7 MCHC 32.7 RDW 14.8 Plt Count 149 MPV 9.2 Sodium 142 Potassium 4.1 Chloride 109 H Carbon Dioxide 27 Anion Gap 6 L BUN 15 Creatinine 0.9 Creat Clearance w eGFR > 60 POC Glucometer 152 Random Glucose 124 H Calcium 8.6 Total Bilirubin 0.2 AST 12 L ALT 25 Alkaline Phosphatase 85 Total Protein 6.3 L Albumin 3.2 L Urine Color Urine Appearance Urine pH Ur Specific [place] Urine Protein Urine Glucose (UA) Urine Ketones Urine Blood Urine Nitrite Urine Bilirubin Urine Urobilinogen Ur Leukocyte Esterase RPR Titer Hep C Ab Diagnostic Liver Fibrosis Interp HIV 1&2 Antibody Screen HIV P24 Antigen 09/19/17 09/19/17 09/19/17 07:55 07:55 07:55 WBC RBC Hgb Hct MCV MCH MCHC RDW Plt Count MPV Sodium Potassium Chloride Carbon Dioxide Anion Gap BUN Creatinine Creat Clearance w eGFR POC Glucometer Random Glucose Calcium Total Bilirubin AST ALT Alkaline Phosphatase Total Protein Albumin Urine Color Urine Appearance Urine pH Ur Specific [place] Urine Protein Urine Glucose (UA) Urine Ketones Urine Blood Urine Nitrite Urine Bilirubin Urine Urobilinogen Ur Leukocyte Esterase RPR Titer Nonreactive Hep C Ab Diagnostic 0.1 Liver Fibrosis Interp HIV 1&2 Antibody Screen Negative HIV P24 Antigen Negative 09/19/17 09/19/17 09/20/17 08:39 16:52 06:44 WBC RBC Hgb Hct MCV MCH MCHC RDW Plt Count MPV Sodium Potassium Chloride Carbon Dioxide Anion Gap BUN Creatinine Creat Clearance w eGFR POC Glucometer 209 132 Random Glucose Calcium Total Bilirubin AST ALT Alkaline Phosphatase Total Protein Albumin Urine Color Ltyellow Urine Appearance Clear Urine pH 6.0 Ur Specific [place] 1.016 Urine Protein Negative Urine Glucose (UA) Negative Urine Ketones Negative Urine Blood Negative Urine Nitrite Negative Urine Bilirubin Negative Urine Urobilinogen Negative Ur Leukocyte Esterase Negative RPR Titer Hep C Ab Diagnostic Liver Fibrosis Interp HIV 1&2 Antibody Screen HIV P24 Antigen 09/20/17 09/21/17 09/21/17 16:43 06:12 16:51 WBC RBC Hgb Hct MCV MCH MCHC RDW Plt Count MPV Sodium Potassium Chloride Carbon Dioxide Anion Gap BUN Creatinine Creat Clearance w eGFR POC Glucometer 251 129 231 Random Glucose Calcium Total Bilirubin AST ALT Alkaline Phosphatase Total Protein Albumin Urine Color Urine Appearance Urine pH Ur Specific [place] Urine Protein Urine Glucose (UA) Urine Ketones Urine Blood Urine Nitrite Urine Bilirubin Urine Urobilinogen Ur Leukocyte Esterase RPR Titer Hep C Ab Diagnostic Liver Fibrosis Interp HIV 1&2 Antibody Screen HIV P24 Antigen 09/22/17 09/22/17 09/23/17 06:19 16:50 06:00 WBC RBC Hgb Hct MCV MCH MCHC RDW Plt Count MPV Sodium Potassium Chloride Carbon Dioxide Anion Gap BUN Creatinine Creat Clearance w eGFR POC Glucometer 128 191 119 Random Glucose Calcium Total Bilirubin AST ALT Alkaline Phosphatase Total Protein Albumin Urine Color Urine Appearance Urine pH Ur Specific [place] Urine Protein Urine Glucose (UA) Urine Ketones Urine Blood Urine Nitrite Urine Bilirubin Urine Urobilinogen Ur Leukocyte Esterase RPR Titer Hep C Ab Diagnostic Liver Fibrosis Interp HIV 1&2 Antibody Screen HIV P24 Antigen 09/23/17 09/24/17 09/24/17 16:40 06:21 17:05 WBC RBC Hgb Hct MCV MCH MCHC RDW Plt Count MPV Sodium Potassium Chloride Carbon Dioxide Anion Gap BUN Creatinine Creat Clearance w eGFR POC Glucometer 228 133 135 Random Glucose Calcium Total Bilirubin AST ALT Alkaline Phosphatase Total Protein Albumin Urine Color Urine Appearance Urine pH Ur Specific [place] Urine Protein Urine Glucose (UA) Urine Ketones Urine Blood Urine Nitrite Urine Bilirubin Urine Urobilinogen Ur Leukocyte Esterase RPR Titer Hep C Ab Diagnostic Liver Fibrosis Interp HIV 1&2 Antibody Screen HIV P24 Antigen 09/25/17 09/25/17 09/26/17 07:11 17:18 06:43 WBC RBC Hgb Hct MCV MCH MCHC RDW Plt Count MPV Sodium Potassium Chloride Carbon Dioxide Anion Gap BUN Creatinine Creat Clearance w eGFR POC Glucometer 141 234 130 Random Glucose Calcium Total Bilirubin AST ALT Alkaline Phosphatase Total Protein Albumin Urine Color Urine Appearance Urine pH Ur Specific [place] Urine Protein Urine Glucose (UA) Urine Ketones Urine Blood Urine Nitrite Urine Bilirubin Urine Urobilinogen Ur Leukocyte Esterase RPR Titer Hep C Ab Diagnostic Liver Fibrosis Interp HIV 1&2 Antibody Screen HIV P24 Antigen 09/27/17 09/27/17 09/28/17 06:42 16:40 06:49 WBC RBC Hgb Hct MCV MCH MCHC RDW Plt Count MPV Sodium Potassium Chloride Carbon Dioxide Anion Gap BUN Creatinine Creat Clearance w eGFR POC Glucometer 140 181 134 Random Glucose Calcium Total Bilirubin AST ALT Alkaline Phosphatase Total Protein Albumin Urine Color Urine Appearance Urine pH Ur Specific [place] Urine Protein Urine Glucose (UA) Urine Ketones Urine Blood Urine Nitrite Urine Bilirubin Urine Urobilinogen Ur Leukocyte Esterase RPR Titer Hep C Ab Diagnostic Liver Fibrosis Interp HIV 1&2 Antibody Screen HIV P24 Antigen 09/28/17 09/29/17 09/29/17 16:45 06:10 17:01 WBC RBC Hgb Hct MCV MCH MCHC RDW Plt Count MPV Sodium Potassium Chloride Carbon Dioxide Anion Gap BUN Creatinine Creat Clearance w eGFR POC Glucometer 228 142 121 Random Glucose Calcium Total Bilirubin AST ALT Alkaline Phosphatase Total Protein Albumin Urine Color Urine Appearance Urine pH Ur Specific [place] Urine Protein Urine Glucose (UA) Urine Ketones Urine Blood Urine Nitrite Urine Bilirubin Urine Urobilinogen Ur Leukocyte Esterase RPR Titer Hep C Ab Diagnostic Liver Fibrosis Interp HIV 1&2 Antibody Screen HIV P24 Antigen 09/30/17 09/30/17 10/01/17 06:11 16:53 07:08 WBC RBC Hgb Hct MCV MCH MCHC RDW Plt Count MPV Sodium Potassium Chloride Carbon Dioxide Anion Gap BUN Creatinine Creat Clearance w eGFR POC Glucometer 144 142 160 Random Glucose Calcium Total Bilirubin AST ALT Alkaline Phosphatase Total Protein Albumin Urine Color Urine Appearance Urine pH Ur Specific [place] Urine Protein Urine Glucose (UA) Urine Ketones Urine Blood Urine Nitrite Urine Bilirubin Urine Urobilinogen Ur Leukocyte Esterase RPR Titer Hep C Ab Diagnostic Liver Fibrosis Interp HIV 1&2 Antibody Screen HIV P24 Antigen 10/01/17 10/02/17 10/02/17 17:15 06:12 16:53 WBC RBC Hgb Hct MCV MCH MCHC RDW Plt Count MPV Sodium Potassium Chloride Carbon Dioxide Anion Gap BUN Creatinine Creat Clearance w eGFR POC Glucometer 190 135 180 Random Glucose Calcium Total Bilirubin AST ALT Alkaline Phosphatase Total Protein Albumin Urine Color Urine Appearance Urine pH Ur Specific [place] Urine Protein Urine Glucose (UA) Urine Ketones Urine Blood Urine Nitrite Urine Bilirubin Urine Urobilinogen Ur Leukocyte Esterase RPR Titer Hep C Ab Diagnostic Liver Fibrosis Interp HIV 1&2 Antibody Screen HIV P24 Antigen 10/03/17 10/03/17 10/04/17 06:04 16:56 06:12 WBC RBC Hgb Hct MCV MCH MCHC RDW Plt Count MPV Sodium Potassium Chloride Carbon Dioxide Anion Gap BUN Creatinine Creat Clearance w eGFR POC Glucometer 148 219 142 Random Glucose Calcium Total Bilirubin AST ALT Alkaline Phosphatase Total Protein Albumin Urine Color Urine Appearance Urine pH Ur Specific [place] Urine Protein Urine Glucose (UA) Urine Ketones Urine Blood Urine Nitrite Urine Bilirubin Urine Urobilinogen Ur Leukocyte Esterase RPR Titer Hep C Ab Diagnostic Liver Fibrosis Interp HIV 1&2 Antibody Screen HIV P24 Antigen 10/04/17 10/05/17 10/05/17 17:13 06:47 16:52 WBC RBC Hgb Hct MCV MCH MCHC RDW Plt Count MPV Sodium Potassium Chloride Carbon Dioxide Anion Gap BUN Creatinine Creat Clearance w eGFR POC Glucometer 194 163 240 Random Glucose Calcium Total Bilirubin AST ALT Alkaline Phosphatase Total Protein Albumin Urine Color Urine Appearance Urine pH Ur Specific [place] Urine Protein Urine Glucose (UA) Urine Ketones Urine Blood Urine Nitrite Urine Bilirubin Urine Urobilinogen Ur Leukocyte Esterase RPR Titer Hep C Ab Diagnostic Liver Fibrosis Interp HIV 1&2 Antibody Screen HIV P24 Antigen 10/06/17 10/06/17 10/07/17 06:30 17:03 06:15 WBC RBC Hgb Hct MCV MCH MCHC RDW Plt Count MPV Sodium Potassium Chloride Carbon Dioxide Anion Gap BUN Creatinine Creat Clearance w eGFR POC Glucometer 171 202 167 Random Glucose Calcium Total Bilirubin AST ALT Alkaline Phosphatase Total Protein Albumin Urine Color Urine Appearance Urine pH Ur Specific [place] Urine Protein Urine Glucose (UA) Urine Ketones Urine Blood Urine Nitrite Urine Bilirubin Urine Urobilinogen Ur Leukocyte Esterase RPR Titer Hep C Ab Diagnostic Liver Fibrosis Interp HIV 1&2 Antibody Screen HIV P24 Antigen 10/07/17 10/08/17 10/08/17 16:35 06:51 16:40 WBC RBC Hgb Hct MCV MCH MCHC RDW Plt Count MPV Sodium Potassium Chloride Carbon Dioxide Anion Gap BUN Creatinine Creat Clearance w eGFR POC Glucometer 265 180 161 Random Glucose Calcium Total Bilirubin AST ALT Alkaline Phosphatase Total Protein Albumin Urine Color Urine Appearance Urine pH Ur Specific [place] Urine Protein Urine Glucose (UA) Urine Ketones Urine Blood Urine Nitrite Urine Bilirubin Urine Urobilinogen Ur Leukocyte Esterase RPR Titer Hep C Ab Diagnostic Liver Fibrosis Interp HIV 1&2 Antibody Screen HIV P24 Antigen 10/09/17 10/09/17 10/10/17 06:19 16:54 05:14 WBC RBC Hgb Hct MCV MCH MCHC RDW Plt Count MPV Sodium Potassium Chloride Carbon Dioxide Anion Gap BUN Creatinine Creat Clearance w eGFR POC Glucometer 152 181 160 Random Glucose Calcium Total Bilirubin AST ALT Alkaline Phosphatase Total Protein Albumin Urine Color Urine Appearance Urine pH Ur Specific [place] Urine Protein Urine Glucose (UA) Urine Ketones Urine Blood Urine Nitrite Urine Bilirubin Urine Urobilinogen Ur Leukocyte Esterase RPR Titer Hep C Ab Diagnostic Liver Fibrosis Interp HIV 1&2 Antibody Screen HIV P24 Antigen 10/10/17 10/11/17 10/11/17 16:42 06:41 17:05 WBC RBC Hgb Hct MCV MCH MCHC RDW Plt Count MPV Sodium Potassium Chloride Carbon Dioxide Anion Gap BUN Creatinine Creat Clearance w eGFR POC Glucometer 217 150 228 Random Glucose Calcium Total Bilirubin AST ALT Alkaline Phosphatase Total Protein Albumin Urine Color Urine Appearance Urine pH Ur Specific [place] Urine Protein Urine Glucose (UA) Urine Ketones Urine Blood Urine Nitrite Urine Bilirubin Urine Urobilinogen Ur Leukocyte Esterase RPR Titer Hep C Ab Diagnostic Liver Fibrosis Inter HIV 1&2 Antibody Screen HIV P24 Antigen 10/12/17 10/12/17 10/13/17 06:17 16:35 05:58 WBC RBC Hgb Hct MCV MCH MCHC RDW Plt Count MPV Sodium Potassium Chloride Carbon Dioxide Anion Gap BUN Creatinine Creat Clearance w eGFR POC Glucometer 153 225 170 Random Glucose Calcium Total Bilirubin AST ALT Alkaline Phosphatase Total Protein Albumin Urine Color Urine Appearance Urine pH Ur Specific [place] Urine Protein Urine Glucose (UA) Urine Ketones Urine Blood Urine Nitrite Urine Bilirubin Urine Urobilinogen Ur Leukocyte Esterase RPR Titer Hep C Ab Diagnostic Liver Fibrosis Interp HIV 1&2 Antibody Screen HIV P24 Antigen 10/13/17 10/14/17 10/14/17 16:54 06:02 16:41 WBC RBC Hgb Hct MCV MCH MCHC RDW Plt Count MPV Sodium Potassium Chloride Carbon Dioxide Anion Gap BUN Creatinine Creat Clearance w eGFR POC Glucometer 248 158 268 Random Glucose Calcium Total Bilirubin AST ALT Alkaline Phosphatase Total Protein Albumin Urine Color Urine Appearance Urine pH Ur Specific [place] Urine Protein Urine Glucose (UA) Urine Ketones Urine Blood Urine Nitrite Urine Bilirubin Urine Urobilinogen Ur Leukocyte Esterase RPR Titer Hep C Ab Diagnostic Liver Fibrosis Interp HIV 1&2 Antibody Screen HIV P24 Antigen 10/15/17 10/15/17 10/16/17 06:16 16:33 06:05 WBC RBC Hgb Hct MCV MCH MCHC RDW Plt Count MPV Sodium Potassium Chloride Carbon Dioxide Anion Gap BUN Creatinine Creat Clearance w eGFR POC Glucometer 163 255 208 Random Glucose Calcium Total Bilirubin AST ALT Alkaline Phosphatase Total Protein Albumin Urine Color Urine Appearance Urine pH Ur Specific [place] Urine Protein Urine Glucose (UA) Urine Ketones Urine Blood Urine Nitrite Urine Bilirubin Urine Urobilinogen Ur Leukocyte Esterase RPR Titer Hep C Ab Diagnostic Liver Fibrosis Interp HIV 1&2 Antibody Screen HIV P24 Antigen general: alert and oriented x 3. In no acute distress Skin: warm and dry car: [id number],RRR resp: cta bl ext: full rom, no edema a/p: Headache related to HTN Will d/c amlodipine continue lisinopril 20mg daily clonidine 0.2mg po stat then clonidine 0.1mg BID continue to monitor clinically.
[2017-10-16] MEDS: cloNIDine HCL 0.1 MG TABLET PO SCH (21:33)
[2017-10-16] MEDS: THIAMINE HCL 100 MG TABLET (FP) PO SCH (21:33)
[2017-10-17] MEDS: IBUPROFEN 600 MG TABLET (FP) PO SCH ×3 (05:54→21:26)
[2017-10-17] MEDS ORDERED: amLODIPine BESYLATE 10 MG TABLET (FP) PO SCH ×2 (06:00→10:00)
[2017-10-17] MEDS: metFORMIN HCL 500 MG TABLET (FP) PO SCH ×2 (06:49→16:37)
[2017-10-17] MEDS: cloNIDine HCL 0.1 MG TABLET PO SCH ×2 (10:41→21:26)
[2017-10-17] MEDS: LISINOPRIL 10 MG TABLET (FP) PO SCH (10:41)
[2017-10-17] MEDS: PRENATAL VITAMINS W/ FOLIC ACID TABLET (FP) PO SCH (10:42)
[2017-10-17] MEDS: NICOTINE 21 MG/24 HOURS TOPICAL PATCH TD SCH (10:42)
[2017-10-17] MEDS: THIAMINE HCL 100 MG TABLET (FP) PO SCH (21:26)
[2017-10-18] MEDS: IBUPROFEN 600 MG TABLET (FP) PO SCH ×3 (06:25→21:29)
[2017-10-18] MEDS: metFORMIN HCL 500 MG TABLET (FP) PO SCH ×2 (06:25→16:41)
[2017-10-18] MEDS: LISINOPRIL 10 MG TABLET (FP) PO SCH (10:24)
[2017-10-18] MEDS: cloNIDine HCL 0.1 MG TABLET PO SCH ×2 (10:24→21:29)
[2017-10-18] MEDS: NICOTINE 21 MG/24 HOURS TOPICAL PATCH TD SCH (10:25)
[2017-10-18] MEDS: PRENATAL VITAMINS W/ FOLIC ACID TABLET (FP) PO SCH (10:25)
--- NOTE | 2017-10-18 15:38 | PN ---
Psychiatric Progress Note Vital Signs: Vital Signs Period Temp Pulse Resp BP Sys/Alonzo Pulse Ox Last 24 Hr 98.0 F 88-88 18-18 129-136/89-98 Date of Session: 10/18/17 Chief Complaint:: Discharge Note HPI: Patient addressing Alcohol, Opioid and Cocaine Dependence comorbid with Nicotine Dependence ROS: Asthma, HTN, DM, Right knee pain Current Medications: Active Medications Generic Name Dose Route Start Last Admin Trade Name Freq PRN Reason Stop Dose Admin Acetaminophen 650 mg 09/18/17 19:21 09/30/17 10:30 Tylenol - PO 650 mg Q4H PRN Administration FEVER Al Hydroxide/Mg Hydroxide 30 ml 09/18/17 19:21 Mylanta Oral Suspension - PO Q6H PRN DYSPEPSIA Clonidine 0.1 mg 10/16/17 22:00 10/18/17 10:24 Catapres - PO 0.1 mg BID LUIS Administration Eucalyptus/Menthol/Phenol/Sorbitol 1 each 09/18/17 19:21 09/29/17 21:19 Cepastat Lozenge - MM 1 each Q4H PRN Administration SORE THROAT Guaifenesin 10 ml 09/18/17 19:21 Robitussin Dm - PO Q6H PRN COUGH Hydroxyzine Pamoate 50 mg 09/18/17 19:21 Vistaril - PO Q4H PRN AGITATION Ibuprofen 600 mg 09/18/17 22:00 10/18/17 14:21 Motrin - PO 600 mg TID LUIS Administration Lisinopril 20 mg 10/17/17 10:00 10/18/17 10:24 Prinivil PO 20 mg DAILY LUIS Administration Loperamide HCl 4 mg 09/18/17 19:21 Imodium - PO Q6H PRN DIARRHEA Magnesium Citrate 300 ml 09/18/17 19:21 Citroma - PO Q48H PRN CONSTIPATION Magnesium Hydroxide 30 ml 09/18/17 19:21 Milk Of Magnesia - PO DAILY PRN CONSTIPATION Melatonin 5 mg 09/18/17 22:00 09/22/17 21:17 Melatonin PO 5 mg HS PRN Administration INSOMNIA Metformin HCl 500 mg 09/19/17 16:30 10/18/17 06:25 Glucophage - PO 500 mg BID@0700,1630 LUIS Administration Nicotine 21 mg 09/19/17 10:00 10/18/17 10:25 Nicoderm Patch - TD Not Given DAILY LUIS Nicotine Polacrilex 2 mg 09/18/17 19:21 Nicorette Gum - BC Q2H PRN NICOTINE REPLACEMENT RX Multivit/Folic Acid/Iron 1 tab 09/19/17 10:00 10/18/17 10:25 Vitamins (Sjr) - PO 1 tab DAILY LUIS Administration Pseudoephedrine/Triprolidine 1 combo 09/18/17 19:21 Actifed - PO TID PRN NASAL CONGESTION Thiamine HCl 100 mg 09/18/17 22:00 10/17/17 21:26 Vitamin B1 - PO 100 mg HS LUIS Administration Current Side Effect: No Lab tests ordered: Yes Lab tests reviewed: Yes Provider note:: Patient will complete this program on 10/19/17. He has met his treatment goals and will continue to address his issues by going to AA/NA.Told proposal manager writer that from his participation in this program, he has learned to open up more, ventilate his feelings. He is stable for discharge on 10/19/17 Total face to face time:: 35 Mental Status Exam - Mental Status Exam Alert and Oriented to: Time, Place, Person Cognitive Function: Fair Patient Appearance: Well Groomed Mood: Hopeful, Euthymic Affect: Appropriate Patient Behavior: Cooperative Speech Pattern: Clear Voice Loudness: Normal Thought Process: Intact Thought Disorder: Not Present Hallucinations: Denies Suicidal Ideation: Denies Homicidal Ideation: Denies Insight/Judgement: Fair Sleep: Fair Appetite: Good Muscle strength/Tone: Normal Gait/Station: Normal Psychiatric Treatment Plan - Problem List (1) Alcohol dependence Current Visit: Yes (2) Opiate dependence Current Visit: Yes Qualifiers: Substance use status: in remission Qualified Code(s): F11.21 - Opioid dependence, in remission (3) Cocaine dependence Current Visit: Yes Qualifiers: Substance use status: in remission Qualified Code(s): F14.21 - Cocaine dependence, in remission (4) Nicotine dependence unspecified, with withdrawal Current Visit: Yes Qualifiers: Nicotine product type: cigarettes Qualified Code(s): F17.213 - Nicotine dependence, cigarettes, with withdrawal (5) Diabetes mellitus Current Visit: Yes Qualifiers: Diabetes mellitus type: type 2 Diabetes mellitus disc ruler operator insulin use: without disc ruler operator use Diabetes mellitus complication status: without complication Qualified Code(s): E11.9 - Type 2 diabetes mellitus without complications (6) HTN (hypertension) Current Visit: Yes (7) Knee pain, right Current Visit: Yes Qualifiers: Chronicity: chronic Qualified Code(s): M25.561 - Pain in right knee; G89.29 - Other chronic pain (8) History of knee replacement procedure of left knee Current Visit: No Initial treatment plan: Patient will be discharged tomorrow and will be attending AA/NA as a form of outpatient treatment
[2017-10-18] MEDS: THIAMINE HCL 100 MG TABLET (FP) PO SCH (21:29)
[2017-10-19 07:27] VITALS: BP 159/98; PULSE 110; TEMP 97.9
[2017-10-19] MEDS: metFORMIN HCL 500 MG TABLET (FP) PO SCH (07:37)
[2017-10-19] MEDS: IBUPROFEN 600 MG TABLET (FP) PO SCH (07:38)
[2017-10-19] MEDS: LISINOPRIL 10 MG TABLET (FP) PO SCH (10:15)
[2017-10-19] MEDS: PRENATAL VITAMINS W/ FOLIC ACID TABLET (FP) PO SCH (10:15)
[2017-10-19] MEDS: cloNIDine HCL 0.1 MG TABLET PO SCH (10:15)
[2017-10-19] MEDS: NICOTINE 21 MG/24 HOURS TOPICAL PATCH TD SCH (10:16)
== END 2017-10-19 10:35 | disposition home or self-care (01) | DRG 772 ==
LOC: YASAS 14:15 → Y5N 17:35
PROVIDERS: ADMIT Surgery; ATTEND Psychiatry & Neurology Psychiatry
PROC: HZ42ZZZ Group Counseling for Substance Abuse Treatment, Cognitive-Behavioral (ICD-10-PCS; principal; 2017-09-18)
DX: F11.20 Opioid dependence, uncomplicated (principal); F10.20 Alcohol dependence, uncomplicated; F14.20 Cocaine dependence, uncomplicated; F17.213 Nicotine dependence, cigarettes, with withdrawal; I10 Essential (primary) hypertension; E11.9 Type 2 diabetes mellitus without complications; M25.561 Pain in right knee; G89.29 Other chronic pain; R51 Headache; J45.909 Unspecified asthma, uncomplicated; R35.0 Frequency of micturition; Z91.013 Allergy to seafood; Z79.84 Long term (current) use of oral hypoglycemic drugs; Z96.652 Presence of left artificial knee joint; Z59.0 Homelessness
CPT/HCPCS: 36415; 71045-TC-FY; 80053; 81003; 82962; 85027; 86593; 87389; 93005; 93010; J0735